=== PATIENT | male | born 1985 ===

== ENCOUNTER 2021-04-28 12:00 | Outpatient (REF) | payer BC, SELFPAY ==
[2021-04-28 15:05] LABS: Binax Internal Control QC Valid; Binax Lot number: 9864; Binax Now Covid-19 Ag Positive (Negative)
== END 2021-04-28 12:01 | disposition home or self-care (01) ==
LOC: HO.LAB 12:00
PROVIDERS: Visit Provider Internal Medicine
DX: Z20.822 Contact with and (suspected) exposure to COVID-19 (principal)
CPT/HCPCS: 36415

== ENCOUNTER 2023-08-17 09:21 | Emergency (ER) | payer BC, SELFPAY ==
[2023-08-17 09:25] VITALS: BP 136/94; PULSE 92; RESP 18; TEMP 36.4; O2SAT 95; BMI 30.6
[2023-08-17 09:42] LABS: MANUAL DIFF FLAG NO
[2023-08-17 09:44] LABS: Basophils Percent Auto 0.6 % (0-2); Eosinophils Absolute Auto 0.1 X10*3/uL (0.0-0.4); Eosinophils Percent Auto 1.5 % (0-4); Hematocrit 40.2 % (42.0-52.0); Hemoglobin 14.2 g/dl (14.0-18.0); Imm Gran Abs Auto 0.01 X10*3/uL (0.00-0.03); Imm Gran Pct Auto 0.1 % (0.0-0.4); Lymphocytes Absolute Auto 2.4 X10*3/uL (1.2-4.9); Lymphocytes Percent Auto 35.4 % (20-40); Mean Corpuscular HGB Conc 35.3 g/dl (31.0-36.0); Mean Corpuscular Volume 87.8 fL (80.0-98.0); Mean Platelet Volume 9.8 fL (9.4-12.4); Monocytes Absolute Auto 0.6 X10*3/uL (0.1-1.2); Monocytes Percent Auto 8.2 % (2-11); Neutrophils Absolute Auto 3.7 x10*3/uL (2.0-8.3); Neutrophils Percent Auto 54.2 % (45-73); Platelet Count 306 X10*3/uL (160-400); Red Blood Count 4.58 X10*6/uL (4.60-5.80); Red Cell Distribution Width 12.1 % (11.0-16.0); White Blood Count 6.7 X10*3/uL (4.8-10.8)
[2023-08-17 10:11] LABS: Alanine Aminotransferase 66 U/L (0-40); Albumin Level 4.5 g/dL (3.5-5.0); Alkaline Phosphatase 48 U/L (39-117); Anion Gap 12 (12-20); Aspartate Amino Transferase 42 U/L (5-37); Bilirubin Direct 0.2 mg/dL (0.0-0.5); Bilirubin Total 0.7 mg/dL (0.0-1.0); Blood Urea Nitrogen 13 mg/dL (9-16); Calcium 9.1 mg/dL (8.4-10.2); Carbon Dioxide 23 mmol/L (22-29); Chloride 108 mmol/L (96-108); Creatinine Clr Calc Pharmacy 142.7; Estimated Glomerular Filt Rate > 60; Glucose Random 118 mg/dL (60-115); Lipase 43 U/L (8-78); Potassium 3.8 mmol/L (3.3-5.1); Sodium 139 mmol/L (135-145); Total Protein 7.2 g/dL (6.5-8.0)
[2023-08-17 13:18] VITALS: BP 130/75; PULSE 82; RESP 20; TEMP 36.1; O2SAT 97
--- NOTE | 2023-08-17 13:19 | ED_ITS ---
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 Last month he developed bleeding with bowel movements. He saw his regular doctor found no hemorrhoids. He was referred to Gastroenterology and was given an appointment in September. He says that last month he had bleeding for about 5 or 6 days. This was associated with some abdominal discomfort. Eventually the bleeding and the abdominal discomfort resolved. Last week he once again had bright red blood with bowel movements and this has persisted over the last 6-7 days. He says he has had some mild abdominal discomfort during this period. No fevers. He says several days ago he contacted his gastroenterology office and had his appointment moved up to early August. However he says that he has sometimes felt lightheaded when he has had a bloody bowel movement and he came to the emergency room today for evaluation. Related Data Allergies Allergy/AdvReac Type Severity Reaction Status Date / Time amoxicillin Allergy Unknown Verified 08/17/23 09:27 Review of Systems 2 Review of Systems: Yes all other systems are reviewed and are negative [facility] [place] Social History Social History Advance Directives: No Advance Directives Information Provided: No Do you have a plan to hurt others: No Plan Physical Exam ED Vital Signs: Vital Signs - 24 hr 08/17/23 09:25 08/17/23 13:18 08/17/23 20:53 Temperature 97.6 F 97.0 F 97.9 F Pulse Rate 92 82 87 Respiratory Rate 18 20 19 Blood Pressure 136/94 H 130/75 144/87 H Pulse Oximetry 95 97 98 Oxygen Delivery Method Room Air Room Air Room Air BMI result Body Mass Index 30.6 Const General: cooperative, healthy appearing, comfortable and no acute distress HENMT Other: The face is symmetrical. ?Mucous membranes moist. Eyes Other: Pupils are round equal, conjunctivae are clear, extraocular movements intact Resp Effort & Inspection: normal respiratory effort Auscultation: clear to auscultation bilaterally Cardio Rate: regular rate Rhythm: regular rhythm Heart sounds: S1 normal heart sound present and S2 normal heart sound present GI Other: Abdomen is soft without apparent tenderness. Rectal exam showed excellent rectal tone. No external hemorrhoids. No masses or anything palpable on the exam. No blood on my glove. Skin Other: Skin is dry and unremarkable. Neuro Other: The patient is awake, alert, pleasant, cooperative. In no acute distress. Extrem Other: No peripheral edema Course Course Course Narrative: This is an RME: Additional HPI, ROS, PE not included below will be deferred to primary provider. 38 yo m presents with bleeding with bowel movements X 6 days. Reports abd and back pain. Denies cp, sob, fevers, chills. Not on blood thinners. 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 He is on omeprazole that he purchased [id number]. He describes a week's worth of rectal bleeding last month in June. He has now had another week's worth of rectal bleeding this month. The patient had a very long wait in our waiting room today. He had 2 CBC is drawn today. First was at 09:35 and the 2nd was at 14:24. His initial hematocrit was 40.2. His 2nd hematocrit was 40.1. He was not actively bleeding in the emergency room. He is stable. I assume that he is having bleeding from internal hemorrhoids. I have given him the name and number of the general surgeon on-call today as an alternative to his gastroenterology office to try to get prompt follow up for this recurrent rectal bleeding. Lab Data 08/17/23 14:24 08/17/23 09:35 Labs: Lab Results 08/17/23 08/17/23 Range/Units 09:35 14:24 WBC 6.7 7.0 (4.8-10.8) X10*3/uL RBC 4.58 L 4.54 L (4.60-5.80) X10*6/uL Hgb 14.2 13.9 L (14.0-18.0) g/dl Hct 40.2 L 40.1 L (42.0-52.0) % MCV 87.8 88.3 (80.0-98.0) fL MCH 31.0 30.6 (27.0-33.0) pg MCHC 35.3 34.7 (31.0-36.0) g/dl RDW 12.1 12.1 (11.0-16.0) % Plt Count 306 300 (160-400) X10*3/uL MPV 9.8 9.9 (9.4-12.4) fL Immature Gran % (Auto) 0.1 0.4 (0.0-0.4) % Neut % (Auto) 54.2 49.6 (45-73) % Lymph % (Auto) 35.4 35.9 (20-40) % Stokes % (Auto) 8.2 11.4 H (2-11) % Eos % (Auto) 1.5 2.0 (0-4) % Baso % (Auto) 0.6 0.7 (0-2) % Lymph # (Auto) 2.4 2.5 (1.2-4.9) X10*3/uL Stokes # (Auto) 0.6 0.8 (0.1-1.2) X10*3/uL Eos # (Auto) 0.1 0.1 (0.0-0.4) X10*3/uL Baso # (Auto) 0.0 0.1 (0.0-0.2) X10*3/uL Abs Immat Gran (auto) 0.01 0.03 (0.00-0.03) X10*3/uL Absolute Neuts (auto) 3.7 3.5 (2.0-8.3) x10*3/uL Absolute Nucleated RBC 0.000 0.000 (0.0-0.012) X10*3/uL Nucleated RBC % (auto) 0.0 0.0 (0.0-0.2) /100WBC PT 11.6 (11.1-13.3) SEC INR 1.0 (0.9-1.1) Sodium 139 (135-145) mmol/L Potassium 3.8 (3.3-5.1) mmol/L Chloride 108 (96-108) mmol/L Carbon Dioxide 23 (22-29) mmol/L Anion Gap 12 (12-20) BUN 13 (9-16) mg/dL Creatinine 0.86 (0.5-1.4) mg/dL Estim Creat Clear Calc 142.7 Estimated GFR > 60 Random Glucose 118 H (60-115) mg/dL Calcium 9.1 (8.4-10.2) mg/dL Total Bilirubin 0.7 (0.0-1.0) mg/dL Direct Bilirubin 0.2 (0.0-0.5) mg/dL AST 42 H (5-37) U/L ALT 66 H (0-40) U/L Alkaline Phosphatase 48 (39-117) U/L Total Protein 7.2 (6.5-8.0) g/dL Albumin 4.5 (3.5-5.0) g/dL Lipase 43 (8-78) U/L Discharge Plan Discharge Clinical Impression: Rectal bleeding Patient Disposition: Home, Self-Care Additional Instructions: Your blood counts today are stable. I suspect that your bleeding is most likely coming from internal hemorrhoids. Bleeding of this kind can be alarming to see but is rarely dangerous. I have given you the name of Dr. Luna, 1 of the general surgeons. Please contact his office in the morning to try to make a follow up appointment to pursue this problem further. Also contact the gastroenterology office to which you were referred to see if you can get an earlier appointment. I would see whichever doctor can see you sooner. Also stay in touch with your primary care doctor. Return to the emergency room if significantly worse. Referrals: Stevo Valdovinos MD [Primary Care Provider] - () Cortes Luna MD [Physician] - (rectal bleeding presumably internal hemorrhoids) Print Language: Syriac
[2023-08-17 14:28] LABS: MANUAL DIFF FLAG NO
[2023-08-17 14:29] LABS: Basophils Absolute Auto 0.1 X10*3/uL (0.0-0.2); Basophils Percent Auto 0.7 % (0-2); Eosinophils Absolute Auto 0.1 X10*3/uL (0.0-0.4); Hematocrit 40.1 % (42.0-52.0); Hemoglobin 13.9 g/dl (14.0-18.0); Imm Gran Abs Auto 0.03 X10*3/uL (0.00-0.03); Imm Gran Pct Auto 0.4 % (0.0-0.4); Lymphocytes Absolute Auto 2.5 X10*3/uL (1.2-4.9); Lymphocytes Percent Auto 35.9 % (20-40); Mean Corpuscular HGB Conc 34.7 g/dl (31.0-36.0); Mean Corpuscular Hemoglobin 30.6 pg (27.0-33.0); Mean Corpuscular Volume 88.3 fL (80.0-98.0); Mean Platelet Volume 9.9 fL (9.4-12.4); Monocytes Absolute Auto 0.8 X10*3/uL (0.1-1.2); Monocytes Percent Auto 11.4 % (2-11); Neutrophils Absolute Auto 3.5 x10*3/uL (2.0-8.3); Neutrophils Percent Auto 49.6 % (45-73); Platelet Count 300 X10*3/uL (160-400); Red Blood Count 4.54 X10*6/uL (4.60-5.80); Red Cell Distribution Width 12.1 % (11.0-16.0)
[2023-08-17 14:34] LABS: Prothrombin Time 11.6 SEC (11.1-13.3)
[2023-08-17 20:53] VITALS: BP 144/87; PULSE 87; RESP 19; TEMP 36.6; O2SAT 98
[2023-08-17 21:16] VITALS: BP 144/87; PULSE 87; RESP 19; TEMP 36.6; O2SAT 98
== END 2023-08-17 21:21 | disposition home or self-care (01) ==
PROVIDERS: Physician Assistant; Emergency Provider Emergency Medicine; PCP Internal Medicine
DX: K62.5 Hemorrhage of anus and rectum (principal)
CPT/HCPCS: 36415; 80048; 80076; 83690; 85025; 85610; 99282; 99283

== ENCOUNTER 2024-09-20 21:12 | Emergency (ER) | payer BC, SELFPAY ==
[2024-09-20] VITALS (7 sets, daily range): BP systolic 108–139; BP diastolic 56–84; PULSE 96–158; RESP 12–22; TEMP 36.6; O2SAT 95–97; BMI 24.4
--- NOTE | ~2024-09-20 | XR_ITS ---
CLINICAL HISTORY: pain, r o index fx 3 view left hand Comparison: None Findings: No fractures or dislocations. No significant arthritic change. No erosions. There is a small metallic foreign body in the dorsal aspect of the middle finger. IMPRESSION: 1. Metallic foreign body in middle finger, acuity indeterminate. Correlate clinically This document has been electronically signed by: Ángel Gonzalez MD on 09/21/2024 06:43:54
[2024-09-20] MEDS: diazePAM 10 MG/2 ML CARTRIDGE 2.5 MG IM (21:26)
[2024-09-20] MEDS: diphenhydrAMINE HCL 50 MG/ML VIAL IM (21:26)
[2024-09-20] MEDS: Haloperidol Lactate 5 MG/ML VIAL IM (21:26)
--- NOTE | 2024-09-20 21:36 | ED.PSYCH ---
HPI - Psych General Chief Complaint: Psychiatric Symptoms Stated Complaint: psych, intoxication Time Seen by Provider: 09/20/24 21:20 Source: other (Patient's friend) Mode of arrival: wheelchair Limitations: other ( intoxicated) History of Present Illness ED Provider: Dr. Martha Aranda HPI Narrative: Patient comes to the emergency room via private vehicle, accompanied by his friend. Patient is too intoxicated to give any history. According to the patient's friend, patient had a recent break-up with his girlfriend who he dated for 8 years. Two weeks ago, patient tried jumping from a 2nd floor building, patient landed on something did not cause any injury to the patient. Patient's friends have been getting multiple text messages, all concerned about suicide ideation and possible attempts. On arrival to the ED, patient tried to eloped. Patient is too intoxicated, patient was brought back to emergency room by security. Patient keeps trying to run away. Very difficult to redirect the patient, patient is under the influence of alcohol, patient needed to be chemically restrained. according to patient's friend, patient is known to take Klonopin, ketamine and large amount of alcohol. I do not see any prescriptions of Klonopin or ketamine in patient's list of medications or in the [facility] Related Data Home Medications ?Medication ?Instructions ?Recorded ?Confirmed cyclobenzaprine 5 mg tablet 5 mg PO TID 09/21/24 09/21/24 doxepin 10 mg capsule 10 mg PO BEDTIME 09/21/24 09/21/24 ibuprofen 600 mg tablet 600 mg PO TID 09/21/24 09/21/24 omeprazole 20 mg capsule,delayed 20 mg PO DAILY 09/21/24 09/21/24 release quetiapine 50 mg tablet 50 mg PO BEDTIME 09/21/24 09/21/24 quetiapine 50 mg tablet 50 mg PO DAILY 09/21/24 09/21/24 Allergies Allergy/AdvReac Type Severity Reaction Status Date / Time amoxicillin Allergy Unknown Verified 09/20/24 21:23 Review of Systems Review of Systems: Yes Other ( heavily intoxicated) [facility] Past Medical History Medical History Suicide attempt Alcohol abuse Physical Exam Vital Signs: Vital Signs: Last Vital Signs Temp 98.8 F 09/21/24 11:50 Pulse 87 09/21/24 11:50 Resp 17 09/21/24 11:50 BP 132/70 09/21/24 11:50 Pulse Ox 97 09/21/24 11:50 O2 Del Method Room Air 09/21/24 11:50 BMI result Body Mass Index 24.4 Const: Other: Appearance: Alert. combative, intoxicated Eyes: Pupils equal, round and reactive to light. ENT: Pharynx normal. Neck: Normal inspection. Neck supple. No lymph nodes noted. No crepitus CVS: Normal heart rate and rhythm. Pulses normal. Normal S1 and S2 Respiratory: No respiratory distress. Breath sounds normal. No Wheezing. No rales Abdomen: Soft and nontender. No rigidity. No distention. Skin: Skin warm and dry. Normal skin color. Normal skin turgor. Extremities: No lower extremity edema. No Lacerations. No Rash Neuro: moving all extremities, cranial nerves 2-12 grossly intact Psych: agitated, intoxicated, combative but not aggressive Course Course Course Narrative: or patient's own safety, patient needed to be chemically restrained. Patient was given on arrival 2.5 mg of IM diazepam, 50 mg IM Benadryl and 5 mg IM of Haldol all of patient's labs pending care team consult pending patient is on a Section 12 Medications Administered Discontinued Medications Generic Name Dose Route Start Last Admin Trade Name Freq PRN Reason Stop Dose Admin Diazepam 2.5 mg 09/20/24 21:23 09/20/24 21:26 Diazepam 10 Mg/2 Ml Cartridge IM 09/20/24 21:24 2.5 mg STAT STA Administration Diphenhydramine HCl 50 mg 09/20/24 21:23 09/20/24 21:26 Diphenhydramine Hcl 50 Mg/Ml Vial IM 09/20/24 21:24 50 mg ONCE ONE Administration Haloperidol Lactate 5 mg 09/20/24 21:23 09/20/24 21:26 Haloperidol Lactate 5 Mg/Ml Vial IM 09/20/24 21:24 5 mg STAT STA Administration Ibuprofen 600 mg 09/21/24 07:59 09/21/24 08:05 Ibuprofen 600 Mg Tablet PO 09/21/24 08:00 600 mg ONCE ONE Administration Medical Decision Making Medical Decision Making [facility] Narrative: My interpretation of labs: Patient's hemoglobin is 9.5 patient is a bit lower than last years. It was also noted that patient's MCV 70.2, patient likely has iron deficiency anemia. Patient denies any rectal bleeding. Patient's sodium is a bit elevated 148, patient asymptomatic. Patient admits that he has been drinking heavily.. Patient give us a urine sample, have both they urinalysis still pending, nitrite positive. However, patient denies any UTI symptoms. Urine toxicology negative for drugs of abuse, ethanol Earlier this morning, patient was complaining of finger in his left index. X-ray was read as negative. However, there is a clear fracture in the proximal phalanx of the index finger. I discussed the patient with TESSA Galan from Orthopedics, patient will need a radial gutter splint Sign out given to my colleage Dr. Sosa A radial gutter splint was applied. Patient to be discharged home. Psychiatry evaluated patient felt patient is comfortable to go home. Patient is not suicidal not homicidal wants to go home in stable condition This case was discussed with multiple providers, including Dr. Sosa, as well as Ginny Mandujano NP from psychiatry and Diane Orellana from the CARE team. Patient was brought in by a friend yesterday, and he was intoxicated and unable to provide much meaningful information. Per the psychiatry team and care team, patient was calm and cooperative, and adamantly denies any suicidal or homicidal ideation, plan or intent. Per the Psychiatry team, suicidal statements to friend in the past happen in a manner of expressing severe emotional pain, with no indication of actual wishes to be . Patient is alert and oriented, walking around the emergency room, in no acute distress. There was concerned that patient had a series of suicidal statements as well as jumping out of 2nd floor, which intent is unclear as patient again adamantly denies that it was an intent to end his life, and does not at this moment present with any signs of imminent risk of harm to self or others, at this time, patient would benefit from outpatient treatment rather than a short-term involuntary admission to an inpatient unit. Dr. Sosa was made aware of the details as well as Diane willoughby, and Justina. At this time, patient will be discharged, with strict return precautions. Differential Diagnosis Differential Diagnoses: The differential diagnosis associated with the presentation includes ( alcohol abuse, polysubstance abuse, suicidal attempt, anxiety, depression) Admission/Observation Consideration of admission/observation: Escalation of care including admission/observation considered ( patient is on a Section 12, waiting to be seen by the care team to determine patient's disposition) Lab Data 09/20/24 21:48 09/20/24 21:48 Labs: Lab Results 09/20/24 09/21/24 Range/Units 21:48 00:21 WBC 6.6 (4.8-10.8) X10*3/uL RBC 4.59 L (4.60-5.80) X10*6/uL Hgb 9.5 L D (14.0-18.0) g/dl Hct 32.2 L (42.0-52.0) % MCV 70.2 L (80.0-98.0) fL MCH 20.7 L (27.0-33.0) pg MCHC 29.5 L (31.0-36.0) g/dl RDW 17.3 H (11.0-16.0) % Plt Count 406 H D (160-400) X10*3/uL MPV 9.1 L (9.4-12.4) fL Immature Gran % (Auto) 0.2 (0.0-0.4) % Neut % (Auto) 56.0 (45-73) % Lymph % (Auto) 36.5 (20-40) % Hardy % (Auto) 5.2 (2-11) % Eos % (Auto) 1.8 (0-4) % Baso % (Auto) 0.3 (0-2) % Lymph # (Auto) 2.4 (1.2-4.9) X10*3/uL Hardy # (Auto) 0.3 (0.1-1.2) X10*3/uL Eos # (Auto) 0.1 (0.0-0.4) X10*3/uL Baso # (Auto) 0.0 (0.0-0.2) X10*3/uL Abs Immat Gran (auto) 0.01 (0.00-0.03) X10*3/uL Absolute Neuts (auto) 3.7 (2.0-8.3) x10*3/uL Absolute Nucleated RBC 0.000 (0.0-0.012) X10*3/uL Nucleated RBC % (auto) 0.0 (0.0-0.2) /100WBC Sodium 148 H (135-145) mmol/L Potassium 3.3 (3.3-5.1) mmol/L Chloride 115 H (96-108) mmol/L Carbon Dioxide 17 L (22-29) mmol/L Anion Gap 19 (12-20) BUN 9 (9-16) mg/dL Creatinine 0.86 (0.5-1.4) mg/dL Estim Creat Clear Calc 121.4 Estimated GFR > 60 Random Glucose 96 (60-115) mg/dL Calcium 8.6 (8.4-10.2) mg/dL Magnesium 2.2 (1.6-2.6) mg/dL Total Bilirubin 0.2 (0.0-1.0) mg/dL Direct Bilirubin < 0.2 (0.0-0.5) mg/dL AST 30 (5-37) U/L ALT 37 (0-40) U/L Alkaline Phosphatase 67 (39-117) U/L Total Protein 7.4 (6.5-8.0) g/dL Albumin 4.7 (3.5-5.0) g/dL Urine Color Dark Yellow Urine Appearance Clear Urine pH 6.0 (5.0-9.0) Ur Specific Fonda <= 1.005 (1.005-1.025) Urine Protein Negative (Neg-Trace) mg/dL Urine Glucose (UA) Negative (Negative) mg/dL Urine Ketones Negative (Negative) mg/dL Urine Blood Negative (Negative) Urine Nitrite Positive H (Negative) Ur Leukocyte Esterase Negative (Negative) Urine RBC 0-2 (0-2) /HPF Urine WBC 0-5 (0-5) /HPF Ur Squamous Epith Cells 0-2 (0-2) /HPF Urine Bacteria None Seen (None Seen) Hyaline Casts 0-2 (0-2) /LPF Urine Opiates Screen Not Detected (Not Detect) Ur Buprenorphine Scrn Not Detected (Not Detect) ng/mL Ur Oxycodone Screen Not Detected (Not Detect) ng/mL Urine Methadone Screen Not Detected (Not Detect) ng/mL Urine Fentanyl Screen Not Detected (Not Detect) Ur Barbiturates Screen Not Detected (Not Detect) Ur Phencyclidine Scrn Not Detected (Not Detect) Ur Amphetamines Screen Not Detected (Not Detect) U Benzodiazepines Scrn Not Detected (Not Detect) Urine Cocaine Screen Not Detected (Not Detect) U Marijuana (THC) Screen Not Detected (Not Detect) Ethyl Alcohol 193 mg/dL Procedures Orthopedic Splinting/Casting Left radial gutter: Side: left Upper Extremity Injury Location: finger (Radial gutter) Upper Extremity Immobilizer: finger (other) (Radial gutter splint) Discharge Plan Discharge Clinical Impression: Suicidal ideation, Alcohol intoxication Patient Disposition: Home, Self-Care Instructions: Finger Fracture (ED), Abuse of Alcohol (ED), Splint Care (ED) Additional Instructions: Please follow-up as per crisis as well Prescriptions: No Action doxepin 10 mg capsule 10 mg PO BEDTIME omeprazole 20 mg capsule,delayed release(DR/EC) 20 mg PO DAILY ibuprofen 600 mg tablet 600 mg PO TID cyclobenzaprine 5 mg tablet 5 mg PO TID quetiapine 50 mg tablet 50 mg PO BEDTIME quetiapine 50 mg tablet 50 mg PO DAILY Referrals: Stanley Archibald MD [Physician] - 09/25/24 Interventions: [facility]-Suicide Risk Severity Scale Last Done: 09/20/24 21:56 ED Discharge Assessment Last Done: 09/21/24 11:50 Discharge Date/Time: 09/21/24 11:59 Print Language: Faroese
[2024-09-20 21:52] LABS: MANUAL DIFF FLAG NO
[2024-09-20 21:53] LABS: Basophils Percent Auto 0.3 % (0-2); Eosinophils Absolute Auto 0.1 X10*3/uL (0.0-0.4); Eosinophils Percent Auto 1.8 % (0-4); Hematocrit 32.2 % (42.0-52.0); Hemoglobin 9.5 g/dl (14.0-18.0); Imm Gran Abs Auto 0.01 X10*3/uL (0.00-0.03); Imm Gran Pct Auto 0.2 % (0.0-0.4); Lymphocytes Absolute Auto 2.4 X10*3/uL (1.2-4.9); Lymphocytes Percent Auto 36.5 % (20-40); Mean Corpuscular HGB Conc 29.5 g/dl (31.0-36.0); Mean Corpuscular Hemoglobin 20.7 pg (27.0-33.0); Mean Corpuscular Volume 70.2 fL (80.0-98.0); Mean Platelet Volume 9.1 fL (9.4-12.4); Monocytes Absolute Auto 0.3 X10*3/uL (0.1-1.2); Monocytes Percent Auto 5.2 % (2-11); Neutrophils Absolute Auto 3.7 x10*3/uL (2.0-8.3); Platelet Count 406 X10*3/uL (160-400); Red Blood Count 4.59 X10*6/uL (4.60-5.80); Red Cell Distribution Width 17.3 % (11.0-16.0); White Blood Count 6.6 X10*3/uL (4.8-10.8)
--- NOTE | 2024-09-20 21:53 | PC.NURSE ---
Per friend, pt had a recent break up with girlfriend, friend went to house to check on him - found him to be altered & under the influence of something - smelling like alcohol. Pt made SI statements to the friend. Friend spoke with provider on arrival to ED, pt then tried to elope from WR immediately upon checking in. Per friend, pt is under the influence of ketamine, klonopin, and alcohol. also reports the patient attempted to jump from second story window 2 weeks ago. Brought back to ED room 11 by security. Placed into 4 point restraints as patient was resistive, aggressive, refusing all interventions and refusing to stay, attempting to elope. Medicated per mar with IM injections. 1:1 sitter at bedside. pt on clinical research monitor, blood work collected and sent to lab. Sleeping, respirations even and unlabored. plan of care ongoing.
[2024-09-20 22:10] LABS: Alanine Aminotransferase 37 U/L (0-40); Albumin Level 4.7 g/dL (3.5-5.0); Alkaline Phosphatase 67 U/L (39-117); Anion Gap 19 (12-20); Aspartate Amino Transferase 30 U/L (5-37); Bilirubin Direct < 0.2 mg/dL (0.0-0.5); Bilirubin Total 0.2 mg/dL (0.0-1.0); Blood Urea Nitrogen 9 mg/dL (9-16); Calcium 8.6 mg/dL (8.4-10.2); Carbon Dioxide 17 mmol/L (22-29); Chloride 115 mmol/L (96-108); Creatinine Clr Calc Pharmacy 121.4; Estimated Glomerular Filt Rate > 60; Ethanol 193 mg/dL; Glucose Random 96 mg/dL (60-115); Magnesium 2.2 mg/dL (1.6-2.6); Potassium 3.3 mmol/L (3.3-5.1); Sodium 148 mmol/L (135-145); Total Protein 7.4 g/dL (6.5-8.0)
--- NOTE | 2024-09-20 22:55 | PC.NURSE ---
handover given to Ana AKERS. pt only remains in right arm at this time. ernestina, sleeping on stretcher. see restraint paperwork for further info
--- NOTE | 2024-09-20 23:07 | PC.NURSE ---
This RN assumed pt care @ 2300. Pt sleeping, respirations even and unlabored, no signs of distress Pt removed from restraints completely @ 2304. Sitter with pt Vitals stable Plan of care ongoing.
[2024-09-21 00:36] LABS: Amphetamine Screen Urine Not Detected (Not Detect); Barbiturates, Urine Not Detected (Not Detect); Benzodiazepines Screen Urine Not Detected (Not Detect); Buprenorphine Scr Not Detected (Not Detect); Cannabinoid Screen Urine Not Detected (Not Detect); Cocaine Screen Urine Not Detected (Not Detect); Fentanyl, urine Not Detected (Not Detect); Methadone Screen, Urine Not Detected (Not Detect); Opiate Screen Urine Not Detected (Not Detect); Oxycodone Screen Urine Not Detected (Not Detect); Phencyclidine Screen Urine Not Detected (Not Detect)
--- NOTE | 2024-09-21 00:55 | PC.NURSE ---
Pt changed over with security Sitter with pt Plan of care ongoing.
--- NOTE | 2024-09-21 01:13 | PC.NURSE ---
This RN counted $670.00 in farr from the pts samira, amount counted, verified, and cosigned by security Wilner Tejeda placed in envelope by RN and sealed & placed in lockup by security Plan of care ongoing.
--- NOTE | 2024-09-21 02:23 | PC.NURSE ---
This RN gave report to RN Pt ambulates with a steady gait. Plan of care ongoing.
[2024-09-21 02:24] VITALS: BP 109/66; PULSE 95; RESP 14; TEMP 36.6; O2SAT 97
--- NOTE | 2024-09-21 02:43 | PC.NURSE ---
patient spoke to t/w and stated hes pverall current with some medications, doxepin, seroquel, etc. states he gets meds from [facility]
--- NOTE | 2024-09-21 05:58 | PC.NURSE ---
patient expressed concern for L index finger injry fracture, notifiedprovider
[2024-09-21 06:11] VITALS: BP 132/70; PULSE 87; RESP 17; TEMP 37.1; O2SAT 97
--- NOTE | 2024-09-21 07:14 | PC.NURSE ---
Assumed care of pateint approx 0700. Pt resting comfortably in bed with no apparent s/s of distress. awaiting to be seen by provider.
--- NOTE | 2024-09-21 07:51 | PC.NURSE ---
pt moved to [facility], report given to RN Esther, plan for Dr. Aranda to apply splint
[2024-09-21 07:56] LABS: Appearance Urine Clear; Color Urine Dark Yellow; Glucose Urine UA Negative (Negative); Leukocyte Esterase Urine Negative (Negative); Nitrite Urine Positive (Negative); Specific Gravity - Urine <= 1.005 (1.005-1.025); UMIC TRIGGER UA YES; Urine Blood Negative (Negative); Urine Ketones Negative (Negative); Urine Protein Negative (Neg-Trace)
[2024-09-21 08:03] LABS: Bacteria Urine None Seen (None Seen); Hyaline Casts Urine 0-2 /LPF (0-2); RBC Urine 0-2 /HPF (0-2); Squamous Epithelial Cell Urine 0-2 /HPF (0-2); WBC Urine 0-5 /HPF (0-5)
[2024-09-21] MEDS: Ibuprofen 600 MG TABLET PO (08:05)
--- NOTE | 2024-09-21 10:49 | PC.NURSE ---
care team at bedside meeting with patient. visitors also at bedside
--- NOTE | 2024-09-21 10:49 | MHC.CARE ---
Pt does not present as an imminent risk and does not meet the criteria for IPLOC. ED provider and psychiatry in agreement with disposition and D/C.
[2024-09-21 11:50] VITALS: BP 132/70; PULSE 87; RESP 17; TEMP 37.1; O2SAT 97
== END 2024-09-21 11:59 | disposition home or self-care (01) ==
PROVIDERS: Emergency Provider Emergency Medicine; PCP Internal Medicine
DX: S69.92XA Unspecified injury of left wrist, hand and finger(s), initial encounter (principal); F10.129 Alcohol abuse with intoxication, unspecified; Y90.6 Blood alcohol level of 120-199 mg/100 ml; R45.851 Suicidal ideations; M79.642 Pain in left hand; M79.645 Pain in left finger(s); Y93.39 Activity, other involving climbing, rappelling and jumping off; Y92.9 Unspecified place or not applicable; Y99.8 Other external cause status; Z51.81 Encounter for therapeutic drug level monitoring; Z79.899 Other long term (current) drug therapy
CPT/HCPCS: 29130; 36415; 73120; 80048; 80076; 80307; 81001; 83735; 85025; 96372; 99285; J1200; J1630; J3360; S9485

== ENCOUNTER → 2024-09-21 06:03 | Outpatient (BNV) | payer BC, SELFPAY | PROVIDERS: Emergency Provider Emergency Medicine; PCP Internal Medicine; Visit Provider Specialist | DX: S60.453A Superficial foreign body of left middle finger, initial encounter (principal) | CPT/HCPCS: 73120 ==

== ENCOUNTER 2024-09-26 10:42 | Outpatient (AMB) | payer BC, SELFPAY ==
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
[2024-09-26 11:23] VITALS: BMI 27.2
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
== END 2024-09-26 12:20 | disposition home or self-care (01) ==
LOC: HO.HOS 10:42
PROVIDERS: PCP Internal Medicine; Visit Provider Orthopaedic Surgery
DX: S62.631A Displaced fracture of distal phalanx of left index finger, initial encounter for closed fracture (principal)
CPT/HCPCS: 26720; 99204

== ENCOUNTER → 2024-09-26 10:42 | Outpatient (BNVA) | payer BC, SELFPAY | PROVIDERS: PCP Internal Medicine; Visit Provider Orthopaedic Surgery | DX: M79.642 Pain in left hand (principal); S62.601A Fracture of unspecified phalanx of left index finger, initial encounter for closed fracture; X50.1XXA Overexertion from prolonged static or awkward postures, initial encounter; Y93.89 Activity, other specified; Y92.530 Ambulatory surgery center as the place of occurrence of the external cause; Y99.9 Unspecified external cause status; F10.229 Alcohol dependence with intoxication, unspecified; Z91.51 Personal history of suicidal behavior | CPT/HCPCS: 26720 ==

== ENCOUNTER → 2024-09-26 11:08 | Outpatient (BNV) | payer BC, SELFPAY | PROVIDERS: Visit Provider Radiology Diagnostic Radiology | DX: S62.617D Displaced fracture of proximal phalanx of left little finger, subsequent encounter for fracture with routine healing (principal) | CPT/HCPCS: 73130 ==

== ENCOUNTER 2024-09-27 11:08 | Outpatient (REF) | payer BC, SELFPAY ==
--- NOTE | ~2024-09-27 | XR_ITS ---
EXAMINATION: XR HAND, LEFT CLINICAL INFORMATION: M79.642 - Pain in left hand, follow-up fracture COMPARISON: September 21, 2024 TECHNIQUE: PA, lateral, and oblique views of the left hand. FINDINGS: Again seen is an oblique fracture in the mid and distal diaphysis and metadiaphysis of the proximal phalanx of the second digit. No other abnormalities. XR/XR hand LT min 3V IMPRESSION: Stable fracture involving the second proximal phalanx of the left hand. It appears to extend to the volar margin of the articular surface. Electronically signed by: Ector Freeman MD 09/26/2024 05:59 PM EDT
--- OUTSIDE RECORDS SUMMARY | 2024-09-28 11:59 | XMS_ITS | Clinical Summary ---
Author Organization 175 [facility] Address [address] [place] [address] Phone Care Team Providers Care Urologist Md Name Role Phone Stevo Valdovinos MD Primary [...] Date Diagnosed Date Anxiety 02/10/2024 Overview (02/10/2024): Ramon castellanos therapist [phone] Opioid dependence in remission ([facility]/HCC V24, CMS /HCC V28) 02/10/2024 Fatty liver [...] 3:00 PM EDT Office Visit Adult Medicine [address] [address] Wenceslao Nielsen NP Fall, subsequent encounter (Primary Dx); Neck pain; Acute midline thoracic back pain; Acute pain of right shoulder; Acute pain of right knee 07/24/2024 8:30 AM EDT - 07/24/2024 11:59 PM EDT Hospital Encounter [facility] Ultrasound [address] [place] [address] Fatty liver Discharge Disposition: Home or Self Care from Last 3 Months Immunizations Name Administration Dates Next Due DTP 08/07/1992, 9,02/07/1988, 988,1987 [id number] (Pediarix) 6 w ks to less than [...] ,07/25 DX:Ascariasis Opioid dependence in remissi on ([facility]/HCC V24, CMS/HCC V28) DX:Opioid dependence in remission ([facility]) Anxiety DX:Anxiety Rectal bleeding DX:Rectal bleedi ng [...] Signed Date: 07/24/2024 12:05 ET Workstation ID: [id number] Transcribed By: Self Edit Transcribed Date: 07/24/2024 [...] Signed Date: 07/24/2024 12:05 ET Workstation ID: [id number] Transcribed By: Self Edit Transcribed Date: 07/24/2024 12:03 ET Morgan ZARATE IMG US PROCEDURES Final Result * HIV Screening (05/12/2022) HIV Screening Abstracted Result [facility] Historical Provider HEALTH MAINTENANCE Final Result * Hepatitis C Screening (05/12/2022) Pathologist [facility] Hepatitis C Screening Abstracted Historical Provider HEALTH MAINTENANCE Final Result * (ABNORMAL) Lipid panel (05/12/2022) LDL/HDL Ratio 6(A) 0 - 4 Triglycerides 193(A) 0 - 150 mg/dL Cholesterol 228(A) 0 - 200 mg/dL HDL 40 >=40 mg/dL LDL Cholesterol 150(A) 0 - 100 mg/dL Blood Venous blood specimen / Unknown Result [facility] Historical Provider LAB BLOOD ORDERABLES Radha l Result from Last 3 Months or Most Recently Relevant to Health Maintenance Insurance [facility] Care Teams Urologist Md Relationship Specialty Start Date End Date Stevo Valdovinos MD [address] [place] [address] PCP - General 03/26/22
== END 2024-09-27 11:09 | disposition home or self-care (01) ==
LOC: HO.HOSX 11:08
PROVIDERS: Visit Provider Orthopaedic Surgery
DX: M79.642 Pain in left hand (principal)
CPT/HCPCS: 73130

== ENCOUNTER 2024-10-16 08:39 | Outpatient (REF) | payer BC, SELFPAY ==
--- NOTE | ~2024-10-16 | XR_ITS ---
EXAMINATION: XR HAND 3 OR MORE VIEWS LEFT HISTORY: M79.641 - Pain in left hand COMPARISON: Comparison is made with the prior examination dated 09/26/2024. FINDINGS: Three views of the left hand are submitted. Osseous mineralization is normal. Again seen is a minimally displaced oblique fracture of the proximal phalanx of the index finger. The fracture line remains visible. Minimal callus formation is identified, consistent with healing. The joint spaces are preserved. The soft tissues are unremarkable. XR/XR hand LT min 3V IMPRESSION: Healing minimally displaced oblique fracture of the proximal phalanx of the index finger. Electronically signed by: Robert Painting MD 10/16/2024 09:35 AM EDT
--- OUTSIDE RECORDS SUMMARY | 2024-10-17 09:04 | XMS_ITS | Clinical Summary ---
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 Tx Started 06/15/15 Harvoni 90-400 mg. Take One Tab Daily for 12 Weeks. End Date 09/07/15. Alcohol abuse 07/13/2007 Attention deficit hyperactivity disorder (ADHD) 07/17/2003 Encounters Date Type Department Care Team Description 10/04/2024 Telephone Adult Medicine [address] [phone] Stevo Valdovinos MD Medication Problem 09/04/2024 3:00 PM EDT Office Visit Adult Medicine [address] [phone] Wenceslao Nielsen NP Fall, subsequent encounter (Primary Dx); Neck pain; Acute midline thoracic back pain; Acute pain of right shoulder; Acute pain of right knee 07/24/2024 8:30 AM EDT - 07/24/2024 11:59 PM EDT Hospital Encounter [facility] Ultrasound [address] [place] [address] Fatty liver Discharge Disposition: Home or Self Care from Last 3 Months Immunizations Name Administration Dates Next Due DTP 08/07/1992, 9,02/07/1988, 988,1987 [id number] (Pediarix) 6 w ks to less than [...] 11:30 AM EDT Office Visit Adult Medicine [facility] [address] [place] [phone] Hiwot Lee PA [address] [place], [place] Health Maintenance Due Date Last Done [...] Signed Date: 07/24/2024 12:05 ET Workstation ID: [id number] Transcribed By: Self Edit Transcribed Date: 07/24/2024 [...] Signed Date: 07/24/2024 12:05 ET Workstation ID: [id number] Transcribed By: Self Edit Transcribed Date: 07/24/2024 12:03 ET [facility] US PROCEDURES Final Result * HIV Screening (05/12/2022) Pathologist [facility] HIV Screening Abstracted Result [facility] Provider HEALTH MAINTENANCE Final Result * Hepatitis C Screening (05/12/2022) Pathologist [facility] Hepatitis C Screening Abstracted Result [facility] Provider HEALTH MAINTENANCE Final Result * (ABNORMAL) Lipid panel (05/12/2022) Pathologist [facility] LDL/HDL Ratio 6(A) 0 - 4 Triglycerides 193(A) 0 - 150 mg/dL Cholesterol 228(A) 0 - 200 mg/dL HDL 40 >=40 mg/dL LDL Cholesterol 150(A) 0 - 100 mg/dL Blood Venous blood specimen / Unknown Result [facility] Historical Provider LAB BLOOD ORDERABLES Radha l Result from Last 3 Months or Most Recently Relevant to Health Maintenance Insurance [facility] Care Teams 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
== END 2024-10-16 08:40 | disposition home or self-care (01) ==
LOC: HO.HOSX 08:39
DX: M79.642 Pain in left hand (principal); S62.661A Nondisplaced fracture of distal phalanx of left index finger, initial encounter for closed fracture; W17.89XA Other fall from one level to another, initial encounter; Y93.89 Activity, other specified; Y92.9 Unspecified place or not applicable; Y99.9 Unspecified external cause status
CPT/HCPCS: 73130

== ENCOUNTER → 2024-10-16 08:56 | Outpatient (BNV) | payer BC, SELFPAY | PROVIDERS: Visit Provider Radiology Diagnostic Radiology | DX: S62.611D Displaced fracture of proximal phalanx of left index finger, subsequent encounter for fracture with routine healing (principal) | CPT/HCPCS: 73130 ==

== ENCOUNTER 2024-10-16 08:57 | Outpatient (AMB) | payer BC, SELFPAY ==
[2024-10-16 09:07] VITALS: BMI 27.2
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
--- OUTSIDE RECORDS SUMMARY | 2024-10-16 09:28 | XMS_ITS | Clinical Summary ---
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 for 7 days 5 Active ibuprofen (ADVIL,MOTRIN) 600 mg tablet Take 1 tablet (600 mg total) by mouth 3 (three) times a day if needed for mild pain (pain). 60 tablet 5 11/04/19 25 Active Active Problems Problem Noted Date Diagnosed Date Anxiety 02/10/2024 Overview (02/10/2024): Ramon castellanos therapist [phone] Opioid dependence in remission ([facility]/HCC V24, [facility] /[facility] V28) 02/10/2024 Fatty liver 07/25/2023 Gallbladder polyp 07/25/2023 Microscopic hematuria 01/23/2014 Hep C w/o coma, chronic ([facility]/HCC V24, [facility]/HCC V2 8) 06/30/2011 Overview (02/10/2024): Chronic Hepatitis C Genotype 1A. Tx Started 06/15/15 Harvoni 90-400 mg. Take One Tab Daily for 12 Weeks. End Date 09/07/15. Alcohol abuse 07/13/2007 Attention deficit hyperactivity disorder (ADHD) 07/17/2003 Encounters Date Type Department Care Team Description 10/04/2024 Telephone Adult Medicine [address] [phone] Stevo Valdovinos MD Medication Problem 09/04/2024 3:00 PM EDT Office Visit Adult Medicine [address] [phone] Wenceslao Nielsen NP Fall, subsequent encounter (Primary Dx); Neck pain; Acute midline thoracic back pain; Acute pain of right shoulder; Acute pain of right knee 07/24/2024 8:30 AM EDT - 07/24/2024 11:59 PM EDT Hospital Encounter [facility] Ultrasound [address] [place] [address] Fatty liver Discharge Disposition: Home or Self Care from Last 3 Months Immunizations Name Administration Dates Next Due DTP 08/07/1992, 9,02/07/1988, 988,1987 [id number] (Pediarix) 6 w ks to less than [...] ,07/25 DX:Ascariasis Opioid dependence in remissi on (CMS/HCC V24, CMS/HCC V28) DX:Opioid dependence in remission (HCC) Anxiety DX:Anxiety Rectal bleeding DX:Rectal bleedi ng [...] PM EDT provider will rechk Temperature 36.2 C (97.2 F) 09/04/2024 3:15 PM EDT Respiratory Rate 16 09/04/2024 3:15 PM EDT Oxygen Saturation 98% 09/04/2024 3:1 5 PM EDT Inhaled Oxygen Concentration - - Weight 88.8 kg (195 lb 12.8 oz) 09/04/2024 3:15 PM EDT Height 180.3 cm (5' 11 ) 09/04/2024 3:1 5 PM EDT Body Mass Index 27.31 09/04/2024 3:15 PM EDT Plan of Treatment Upcoming Encounters Date Type Department Care Team (Late st Contact Info) Description 10/22/2024 11:30 AM EDT Office Visit Adult Medicine [facility] [address] [place] [phone] Hiwot Lee PA [address] [place], [place] Health Maintenance Due Date Last Done Comments Hepatitis A Vaccines (1 of 2 - Risk 2-dose series) 07/31/2006 Pneumococcal Vaccine: Pediatrics (0 to 5 Years) and At-Risk Patients (6 to 64 Years) (1 of 2 - PCV) 07/31/2006 Depression Screening 03/23/2022 Social Influencers of Health Screening 03/23/2022 COVID-19 Vaccine ( - season) 2023 03/14/2021 Influenza Vaccine (Season [...] Procedure Name Priority Date/Time Associated Diagnosis Comments EXTERNAL XRAY REPORT 09/21/2024 EXTERNAL XRAY REPORT 09/21/2024 US ABDOMEN LIMITED Routine 07/24/2024 9: 12 AM EDT Fatty liver HEPATITIS C SCREENING Routine 05/12/2022 HIV SCREENING Routine 05/12/2022 LIPID PANEL Routine 05/12/2022 from Last 3 Months or Most Recently Relevant to Health Maintenance Results * External Xray Report (09/21/2024) Only the most recent of2 resultswithin the time period is included. Anatomical Region Laterality Modality Radiographic Shanel ging us Provider [facility] XR PROCEDURES Final Result * US Abdomen Limited (07/24/2024 9:12 AM EDT) Anatomical Region Laterality Modality Body Ultrasound 07/24/2024 12:0 3 PM EDT Impressions 07/24/2024 12:05 PM EDT 1. Small gallbladder polyps and findings suggestive of adenomyomatosis. 2. Mild hepatic steatosis. -------- FINAL REPORT -------- Dictated By: Oscar Hernandez Dictated Date: 07/24/2024 12:03 ET Assigned Physician: Oscar Hernandez Reviewed and Electronically Signed By: Oscar Hernandez Signed Date: 07/24/2024 12:05 ET Workstation ID: [id number] Transcribed By: Self Edit Transcribed Date: 07/24/2024 12:03 ET Narrative 07/24/2024 12:05 PM EDT PROCEDURE: Right upper quadrant ultrasound. HISTORY: steatosis of liver. COMPARISON: None. TECHNIQUE: Grayscale, color Doppler, and spectral Doppler ultrasound evaluation of the right upper quadrant of the abdomen. FINDINGS: LIVER: Mildly echogenic parenchyma. No focal lesion. Normal flow in the main portal vein. BILIARY: Several small gallbladder polyps, measuring up to 4 mm. Small foci of artifact originating in the gallbladder wall suggestive of adenomyomatosis. Normal appearance of the biliary tree. Negative sonographic Fierro sign. PANCREAS: Visualized portions are normal. RIGHT KIDNEY: Normal size and echotexture. No hydronephrosis or focal lesion. Procedure Note Oscar [...] Signed Date: 07/24/2024 12:05 ET Workstation ID: [id number] Transcribed By: Self Edit Transcribed Date: 07/24/2024 12:03 ET [facility] US PROCEDURES Final Result * HIV Screening (05/12/2022) Pathologist [facility] HIV Screening Abstracted Result [facility] Provider HEALTH MAINTENANCE Final Result * Hepatitis C Screening (05/12/2022) Pathologist [facility] Hepatitis C Screening Abstracted Result [facility] Provider HEALTH MAINTENANCE Final Result * (ABNORMAL) Lipid panel (05/12/2022) Pathologist [facility] LDL/HDL Ratio 6(A) 0 - 4 Triglycerides 193(A) 0 - 150 mg/dL Cholesterol 228(A) 0 - 200 mg/dL HDL 40 >=40 mg/dL LDL Cholesterol 150(A) 0 - 100 mg/dL Blood Venous blood specimen / Unknown Result [facility] Historical Provider LAB BLOOD ORDERABLES Radha l Result from Last 3 Months or Most Recently Relevant to Health Maintenance Insurance [facility] Care Teams 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
== END 2024-10-16 09:47 | disposition home or self-care (01) ==
PROVIDERS: PCP Internal Medicine
DX: S62.601A Fracture of unspecified phalanx of left index finger, initial encounter for closed fracture (principal)
CPT/HCPCS: 99024

== ENCOUNTER 2024-11-14 15:13 | Outpatient (AMB) | payer BC, SELFPAY ==
[2024-11-14 15:13] VITALS: BMI 27.2
--- NOTE | 2024-11-14 15:13 | MHC.OFFVIS ---
Vital Signs 11/14/24 15:13 Height 5 ft 11 in Weight 195 lb BMI 27.2 Intake Visit Reasons: OV - Left Index Distal Phalanx Fx ~09/21/34 Intake Note: Mehrdad is a 39 year old left hand dominant male who presents today for a follow up s/p Left Index Finger Distal Phalanx Fracture ~09/21/24. At his last visit he was transitioned into a velcro wrist brace with jelly tape. Instructed to lift nothing heavier than a cell phone for 4 weeks. He remains out of work at this time. Patient reports he is doing well, however he is still having minimal left index swelling. He states he has been off the wrist brace for about 2 weeks. He has started OT once a week, with improvement of ROM. Per patient, OT recommended he be considered for an extended period of time off of work. Allergies amoxicillin Allergy (Verified 11/14/24 15:21) Unknown HPI HPI OV - Left Index Distal Phalanx Fx ~09/21/34: Details: Mehrdad is a 39 year old left hand dominant male who presents today for a follow up s/p Left Index Finger Distal Phalanx Fracture ~09/21/24. At his last visit he was transitioned into a velcro wrist brace with jelly tape. Instructed to lift nothing heavier than a cell phone for 4 weeks. He remains out of work at this time. Patient reports he is doing well, however he is still having minimal left index swelling. He states he has been off the wrist brace for about 2 weeks. He has started OT once a week, with improvement of ROM. Per patient, OT recommended he be considered for an extended period of time off of work. 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 Review of Systems Const All systems reviewed & are unremarkable except as noted in HPI and below Physical Exam Vital Signs: BMI result Body Mass Index 27.2 Const General: cooperative, healthy appearing and no acute distress Orientation/consciousness: patient oriented x3 HEENT Head: Yes normocephalic and Yes atraumatic Eyes EOM: EOMs intact bilaterally Resp Effort & Inspection: normal respiratory effort and able to speak in complete sentences Cardio Jugular venous distension: no JVD Skin General skin exam: turgor normal Rashes: no rashes Neuro General: patient oriented x3 Extrem Other: Evaluation of Left Upper Extremity: The patient is alert, oriented, and in no acute distress Neuro: Median, Ulnar, Radial nerves motor and sensory intact and sensation is normal to the tips of all digits Vascular: Cap refill brisk ROM: He can flex and extend his index finger at the MCP joint between 0 and 90 degrees. He can flex and extend the index finger at the PIP joint easily between 0 and 60 degrees. I did not push it any further Skin: No lacerations or abrasions or evidence of open fracture General: Resolved Palmar ecchymosis No Erythema or evidence of infection. No further tenderness over the index ray fracture site Minimal Swelling in the index finger over the proximal phalanx Psych Appearance: grossly normal Affect: normal affect Attitude: cooperative Assessment & Plan Assessment & Plan (1) Fracture of phalanx of left index finger: Code(s): S62.601A - Fracture of unspecified phalanx of left index finger, initial encounter for closed fracture Category: Medical Plan Assessment & Plan: 1. Left index finger distal phalanx fracture DOI: ~09/21/24, injured while being restrained in the ED 09/06/24, possibly from jump from 2nd story window Splinted in ED 09/21/24 I educated him about this condition I discussed operative and non-operative treatment options I recommend we manage this conservatively, and he is in agreement Patient is educated he should continue jelly taping the fingers with high-risk daytime activities, such as heavy lifting or while at work Patient is educated that over the next 3-4 weeks, he can begin a gradual return back to full normal activity If patient experiences any increases in pain, swelling, redness, or other concerning symptoms, he should call our office for reassessment Patient is amenable to this plan Follow-up as needed Coding Level of Care Code Global (35374) Diagnoses Fracture of phalanx of left index finger S62.601A
--- OUTSIDE RECORDS SUMMARY | 2024-11-14 15:41 | XMS_ITS | Clinical Summary ---
Author Organization 175 [facility] Address [address] [place] [address] Phone Care Team Providers Care Technical Writing Lead/Mgr Name Role Phone Stevo Valdovinos MD Primary Care Provider Allergies Active Allergy Reactions Criticality Noted Date Comments Amoxicillin Trihydrate 01/29/2005 hives Medications triamcinolone (KENALOG) 0.025 % cream Apply to affected areas twice daily for 2 weeks 08/10/19 23 Active omeprazole (PriLOSEC) [address] capsule Take 1 capsule (20 mg total) by mouth 1 (one) time each day. Take on empty stomach in am . Wait 30 mins and then eat to activate the medication 30 capsule 11 03/23/20 24 Active cyclobenzapri ne (FLEXERIL) 5 mg tablet Take 1 tablet (5 mg total) by mouth. for 7 days 09/01/19 25 Active doxepin (SINEquan) 10 mg capsule at bedtimeTake 1 Capsule by mouth at bedtime. 30 capsule 1 10/23/19 25 Active QUEtiapine (SEROquel) 50 mg tablet Take 1 tablet (50 mg total) by mouth at bedtime. 30 tablet 1 10/23/19 25 Active pramipexole (MIRAPEX) 0.25 mg tablet TAKE 1 TABLET BY MOUTH AT BEDTIME 90 tablet 10/24/19 25 Active ferrous sulfate 325 mg (65 mg iron) EC tablet Take 1 tablet (325 mg total) by mouth 1 (one) time each day with breakfast. Do not crush, chew, or split. 30 each 5 10/24/19 25 Active doxepin (SINEquan) 10 mg capsule Take 1 Capsule by mouth at bedtime. 025 Discontinued(R eorder) pramipexole (MIRAPEX) 0.25 mg tablet TAKE 1 TABLET BY MOUTH AT BEDTIME 06/20/19 24 025 Discontinued(R eorder) QUEtiapine (SEROquel) 50 mg tablet Take 0.5 tablets (25 mg total) by mouth at bedtime. 025 Discontinued(R eorder) polyethylene glycol (Golytely) 236-22.74-6.7 4 -5.86 gram solution Take 4L by mouth once for one dose. May substitue any PEG. Starting at 6PM the night before your procedure drink 1 8oz glasses at your own pace until you complete half of the gallon. Finish 2nd half of the gallon 5 hours before your procedure. 4000 mL 03/26/20 24 025 Discontinued(T herapy completed) bisacodyL (DULCOLAX) 5 mg EC tablet Take 2 tablets by mouth right before beginning bowel prep. See instructions provided by the office 2 tablet 03/26/20 24 025 Discontinued(T herapy completed) ibuprofen (ADVIL,MOTRIN ) 600 mg tablet Take 1 tablet (600 mg total) by mouth 3 (three) times a day if needed for mild pain (pain). 60 tablet 09/05/19 25 025 pramipexole (MIRAPEX) 0.25 mg tablet TAKE 1 TABLET BY MOUTH AT BEDTIME 30 tablet 1 10/23/19 25 025 Discontinued Active Problems Problem Noted Date Diagnosed Date History of iron deficiency anemia 10/22/2024 Mixed hyperlipidemia 10/22/2024 Vapes nicotine containing substance 10/22/2024 RLS (restless legs syndrome) 10/22/2024 Insomnia 10/22/2024 Anxiety 02/10/2024 Overview (02/10/2024): Ramon castellanos therapist [phone] Opioid dependence in remission (CMS/HCC V24, CMS /HCC V28) 02/10/2024 Fatty liver [...] Encounters Date Type Department Care Team Description 10/23/2024 Telephone Adult Medicine [address] [phone] Hiwot Lee PA 10/22/2024 11:30 AM EDT Office Visit Adult Medicine [address] [phone] Hiwot Lee PA Routine general medical examination at a health care facility (Primary Dx); History of iron deficiency anemia; Mixed hyperlipidemia; RLS (restless legs syndrome); Insomnia, unspecified type; Vapes nicotine containing substance 10/22/2024 Telephone Adult Medicine [address] [phone] Hiwot Lee PA 10/04/2024 Telephone Adult Medicine [address] [phone] Stevo Valdovinos MD Medication Problem 09/04/2024 3:00 PM EDT Office Visit Adult Medicine [address] [phone] Wenceslao Nielsen NP Fall, subsequent encounter (Primary Dx); Neck pain; Acute midline thoracic back pain; Acute pain of right shoulder; Acute pain of right knee from Last 3 Months Immunizations Name Administration Dates Next Due DTP 08/07/1992, 9,02/07/1988, 988,1987 [id number] (Pediarix) 6 w ks to less than [...] V24, CMS/HCC V28) DX:Opioid dependence in remission ([facility]) Anxiety DX:Anxiety Rectal bleeding DX:Rectal bleedi ng Fatty liver DX:Fatty liver Fatty liver DX:Fatty liver Hyperlipidemia DX:Hyperlipidemi a Family History Medical History Relation Name Comments Hyperlipidemia Father No Known Problems Maternal Grandfather Lung cancer Maternal Grandmother No Known Problems Mother No Known Problems Paternal Grandfather No Known Problems Paternal Grandmother No Known Problems Sister Relation Name Status Comments Father Alive Maternal Grandfather Alive Maternal Grandmother Mother Alive Paternal Grandfather Alive Paternal Grandmother Alive Sister Alive Social History Tobacco Use Types Packs/Day Years Used Date Smoking Tobacco: Former Cigarettes Smokeless Tobacco: Never Tobacco Cessation:Counseling Given: Not Answered Alcohol Use Standard Drinks/Week Comments Not Currently 0 (1 standard drink = 0.6 oz pur e alcohol) sober 1 year Housing Instability Answer Date Recorde d Are you worried that in the next 2 months you may not have stable housing? No 10/22/2024 Food Access & Nutrition Answer Date Rec orded Do you have access to a vari ety of food including fruits and vegetables? Yes 10/22/2024 Health Literacy Answer Date Recorded How often do you need to hav e someone help you when you read instructions, pamphlets, or other written material from your doctor or pharmacy? Never 10/22/2024 Caregiver: How often do you need to have someone help you when you read instructions, pamphlets, or other written material from your doctor or pharmacy? Not on file 10/22/2024 Financial Risk Answer Date Recorded How hard is it for you to pa y for the very basics like food, housing, medical care, and air conditioning / heating? Not very hard 10/22/2024 Transportation Answer Date Recorded Has the lack of transportati on kept you from meetings, work, or from getting things needed for daily living? No Has the lack of transportati on kept you from medical appointments or from getting medications? No 10/22/2024 Social Isolation Answer Date Recorded How often do you feel lonely or isolated from th ose around you? Never 10/22/2024 Food Risk Answer Date Recorded Within the past 12 months we worried whether our food would run out before we got money to buy more. Never true 10/22/2024 Within the past 12 months th e food we bought just didn't last and we didn't have money to get more. Never true 10/22/2024 Dependent Care Answer Date Recorded Do you need help finding or paying for care for your loved ones. For example, early childhood education coordinator or elderly care for an older adult? No 10/22/2024 Education Answer Date Recorded Do you think completing more education or training, like finishing a GED, going to college, or learning a trade, would be helpful for you? No 10/22/2024 Employment and Income Answer Date Recor ded During the last four weeks, have you been actively looking for work? No 10/22/2024 Living Situation Answer Date Recorded What is your living situation? 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 Not on file Not on file Obstetrics History Last Filed Vital Signs Vital Sign Reading Time Taken Comments Blood Pressure 111/68 10/22/2024 11:40 AM EDT Pulse 97 10/22/2024 11:40 AM EDT Temperature 36.6 C (97.8 F) 10/22/2024 11:40 AM EDT Respiratory Rate 14 10/22/2024 11:40 AM EDT Oxygen Saturation 98% 09/04/2024 3:15 PM EDT Inhaled Oxygen Concentration - - Weight 83.2 kg (183 lb 6.4 oz) 10/22/2024 11:40 AM EDT Height 180.3 cm (5' 11 ) 10/22/2024 11:40 AM EDT Body Mass Index 25.58 10/22/2024 11:40 AM EDT Plan of Treatment Upcoming Encounters Date Type Department Care Team (Late st Contact Info) Description 11/27/2024 2:30 PM EDT Office Visit Adult Medicine [facility] [address] [place] [address] Stevo Valdovinos MD [address] [place] [address] Health Maintenance Due Date Last Done Comments Hepatitis A Vaccines (1 of 2 - Risk 2-dose series) 07/31/2006 Pneumococcal Vaccine: Pediatrics (0 to 5 Years) and At-Risk Patients (6 to 49 Years) (1 of 2 - PCV) 07/31/2006 Influenza Vaccine (#1) 2024 Social Influencers of Health Screening 10/22/2025 10/22/2024 Cholesterol Screening (Lipid Panel) 10/22/2029 10/22/2024, 05/12/2022 DTaP,Tdap,and Td Vaccines (9 - Td or Tdap) 05/03/2032 05/03/2022, 04/16/2010, 10/07/1998, Additional history exists IPV Vaccines Completed 08/07/1992, 07/24, 02/07/1988, Additional history exists MMR Vaccines Completed 05/09/1997, 11/15/1988 Hepatitis B Vaccines Completed 03/31/1999, 12/07/1998, 10/07/1998, Additional history exists COVID-19 Vaccine Discontinued 03/14/2021 HIV Screening Completed 05/12/2022 Hepatitis C Screening Completed 05/12/2022 Depression Screening Completed 10/22/2024 HIB Vaccines Aged Out No longer eligi [...] Procedure Name Priority Date/Time Associated Diagnosis Comments CBC WITH AUTO DIFFERENTIAL Routine 10/22/2024 1:07 PM EDT History of iron deficiency anemia CBC AND DIFFERENTIAL Routine 10/22/2024 1:07 PM EDT History of iron deficiency anemia COMPREHENSIVE METABOLIC PANEL Routine 10/22/2024 1:07 PM EDT Routine general medical examination at a [facility] care facility LIPID PANEL WITH REFLEX TO DIRECT LDL Routine 10/22/2024 1:07 PM EDT Mixed hyperlipidemia IRON AND TIBC Routine 10/22/2024 1:07 PM EDT History of iron deficiency anemia EXTERNAL XRAY REPORT 09/21/2024 EXTERNAL XRAY REPORT 09/21/2024 HEPATITIS C SCREENING Routine 05/12/2022 HIV SCREENING Routine 05/12/2022 from Last 3 Months or Most Recently Relevant to Health Maintenance Results * (ABNORMAL) Lipid panel with reflex to direct LDL (10/22/2024 1:07 PM EDT) Cholesterol 200 0 - 200 mg/dL LAB CHEMISTRY METHOD 10/22/2024 5:05 PM EDT [facility] Triglycerides 112 0 - 150 mg/dL LAB CHEMISTRY METHOD 10/22/2024 5:05 PM EDT [facility] HDL 45 >=40 mg/dL LAB CHEMISTRY METHOD 10/22/2024 5:05 PM EDT [facility] LDL Calculated 133(H) 0 - 100 mg/dL LAB CHEMISTRY METHOD 10/22/2024 5:05 PM EDT [facility] VLDL Cholesterol Eyad 22.4 mg/dL LAB CHEMISTRY METHOD 10/22/2024 5:05 PM EDT [facility] Non HDL Chol. (LDL+VLDL) 155(H) <145 mg/dL LAB CHEMISTRY METHOD 10/22/2024 5:05 PM EDT [facility] Chol/HDL Ratio 4.4 0.0 - 4.4 LAB CHEMISTRY METHOD 10/22/2024 5:05 PM EDT [facility] Blood Venous blood specimen / Unknown Venipuncture / Unknown 10/22/2024 1:07 PM EDT 10/22/2024 1:07 PM EDT us Hiwot Jesus PA LAB BLOOD ORDERABLES Final Resul t [facility] [address] [place] [address], [place] [phone] * (ABNORMAL) CBC auto differential (10/22/2024 1:07 PM EDT) [facility] Signature WBC 4.7(L) 4.8 - 10.8 K/mcL LAB HEMETOLOGY METHOD 10/22/2024 4:35 PM EDT [facility] RBC 5.00 4.50 - 5.50 M/mcL LAB HEMETOLOGY METHOD 10/22/2024 4:35 PM EDT [facility] Hemoglobin 10.1(L) 13.5 - 17.5 g/dL LAB HEMETOLOGY METHOD 10/22/2024 4:35 PM EDT [facility] Hematocrit 36.4(L) 42.0 - 54.0 % LAB HEMETOLOGY METHOD [facility]/22[facility]24 [facility] MCV 72.9(L) 79.0 - 98.0 FL LAB HEMETOLOGY METHOD 10/22/2024 4:35 PM EDT [facility] MCH 20.2(L) 27.0 - 32.0 pcg LAB HEMETOLOGY METHOD 10/22/2024 4:[facility] MCHC 27.7(L) 32.0 - 37.0 g/dL LAB HEMETOLOGY METHOD 10/22/2024 4:[facility] RDW 17.3(H) 11.0 - 15.0 % LAB HEMETOLOGY METHOD 10/22/2024 4:35 PM EDT [facility] Platelets 395 130 - 400 K/mcL LAB HEMETOLOGY METHOD 10/22/2024 4:[facility] MPV 10.0 7.0 - 11.0 FL LAB HEMETOLOGY METHOD 10/22/2024 4:[facility] NRBC 0.0 <1.0 % LAB HEMETOLOGY METHOD 10/22/2024 4:35 PM EDT [facility] NRBC Absolute 0.00 <0.10 K/mcL LAB HEMETOLOGY METHOD 10/22/2024 4:35 [facility] Neutrophils Relative 54.8 % LAB HEMETOLOGY METHOD 10/22/2024 4:35 [facility] Lymphocytes Relative 29.0 % LAB HEMETOLOGY METHOD 10/22/2024 4:35 PM EDT [facility] Monocytes Relative 15.0 % LAB HEMETOLOGY METHOD 10/22/2024 4:35 PM EDT [facility] Eosinophils Relative 0.2 % LAB HEMETOLOGY METHOD 10/22/2024 4:[facility] Basophils Relative 0.6 % LAB HEMETOLOGY METHOD 10/22/2024 4:35 PM [facility] Immature Granulocytes Relative 0.4 % LAB HEMETOLOGY METHOD 10/22/2024 4:35 PM [facility] Neutrophils Absolute 2.55 1.50 - 7.00 K/mcL LAB HEMETOLOGY METHOD 10/22/2024 4:35 PM [facility] Lymphocytes Absolute 1.35 1.00 - 5.00 K/mcL LAB HEMETOLOGY METHOD 10/22/2024 4:35 PM EDT [facility] Monocytes Absolute 0.70 0.20 - 1.00 K/mcL LAB HEMETOLOGY METHOD 10/22/2024 4:35 PM EDT [facility] Eosinophils Absolute 0.01 0.00 - 0.50 K/mcL LAB HEMETOLOGY METHOD 10/22/2024 4:35 PM [facility] Basophils Absolute 0.03 0.00 - 0.20 K/mcL LAB HEMETOLOGY METHOD 10/22/2024 4:35 PM EDT [facility] Immature Granulocytes Absolute 0.02 0.00 - 0.03 K/mcL LAB HEMETOLOGY METHOD 10/22/2024 4:35 PM EDT [facility] Blood Venous blood specimen / Unknown Venipuncture / Unknown 10/22/2024 1:07 PM EDT 10/22/2024 1:07 PM EDT Hiwot Lee SC LAB BLOOD ORDERABLES Final Resul t Performing Organization Address City/[facility]/ZIP Co de Phone Number [facility] [address] [place] [address], [place] [phone] * (ABNORMAL) Iron and TIBC (10/22/2024 1:07 PM EDT) Iron 19(L) 50 - 160 mcg/dL LAB CHEMISTRY METHOD 10/22/2024 5:02 PM EDT [facility] TIBC 447 250 - 450 mcg/dL LAB CHEMISTRY METHOD 10/22/2024 5:02 PM EDT [facility] Iron Saturation 4(L) 20 - 50 % LAB CHEMISTRY METHOD 10/22/2024 5:02 PM EDT [facility] Blood Venous blood specimen / Unknown Venipuncture / Unknown 10/22/2024 1:07 PM EDT 10/22/2024 1:07 PM EDT Hiwot ZARATE LAB BLOOD ORDERABLES Final Resul t Performing Organization Address [facility] Co de Phone Number [facility] [address] [place] [address], [place] [phone] * Comprehensive metabolic panel (10/22/2024 1:07 PM EDT) Sodium 137 133 - 145 mmol/L LAB CHEMISTRY METHOD 10/22/2024 5:05 PM EDT [facility] Potassium 4.5 3.5 - 5.5 mmol/L LAB CHEMISTRY METHOD 10/22/2024 5:05 PM [facility] Chloride 105 96 - 110 mmol/L LAB CHEMISTRY METHOD 10/22/2024 5:05 PM [facility] CO2 23 21 - 32 mmol/L LAB CHEMISTRY METHOD 10/22/2024 5:05 PM [facility] Anion Gap 9 3 - 11 LAB CHEMISTRY METHOD 10/22/2024 5:05 PM [facility] Glucose 87 70 - 100 mg/dL LAB CHEMISTRY METHOD 10/22/2024 5:05 PM [facility] BUN 9 5 - 25 mg/dL LAB CHEMISTRY METHOD 10/22/2024 5:05 PM [facility] Creatinine 0.94 0.70 - 1.30 mg/dL LAB CHEMISTRY METHOD 10/22/2024 5:05 PM [facility] eGFR 107 >=60 mL/min/1. 73m2 LAB CHEMISTRY METHOD 10/22/2024 5:05 PM [facility] Comment:Calculation based on the Chronic Kidney Disease Epidemiology Collaboration (CKD-EPI) equation refit without adjustment for race. BUN/Creatinine Ratio 9.6 LAB CHEMISTRY METHOD 10/22/2024 5:05 PM [facility] Calcium 9.3 8.5 - 10.5 mg/dL LAB CHEMISTRY METHOD 10/22/2024 5:05 PM [facility] AST (SGOT) 34 10 - 42 unit/L LAB CHEMISTRY METHOD 10/22/2024 5:05 PM [facility] ALT (SGPT) 53 10 - 60 unit/L LAB CHEMISTRY METHOD 10/22/2024 5:05 PM [facility] Alkaline Phosphatase 67 42 - 121 unit/L LAB CHEMISTRY METHOD 10/22/2024 5:05 PM [facility] Total Protein 7.9 6.0 - 8.0 g/dL LAB CHEMISTRY METHOD 10/22/2024 5:05 PM EDT [facility] Albumin 4.3 3.2 - 5.0 g/dL LAB CHEMISTRY METHOD 10/22/2024 5:05 PM EDT [facility] Total Bilirubin 0.4 0.0 - 1.4 mg/dL LAB CHEMISTRY METHOD 10/22/2024 5:05 PM EDT [facility] Blood Venous blood specimen / Unknown Venipuncture / Unknown 10/22/2024 1:07 PM EDT 10/22/2024 1:07 PM EDT Hiwot Jesus ZARATE LAB BLOOD ORDERABLES Final Resul t [facility]) [facility] [address] [place] [address], [place] [phone] * External Xray Report (09/21/2024) Only the most recent of2 resultswithin the time period is included. Anatomical Region Laterality Modality Radiographic Shanel ging Provider [facility] XR PROCEDURES Final Result * HIV Screening (05/12/2022) HIV Screening Abstracted Historical Provider HEALTH MAINTENANCE Final Result * Hepatitis C Screening (05/12/2022) Hepatitis C Screening Abstracted Historical Provider HEALTH MAINTENANCE Final Result from Last 3 Months or Most Recently Relevant to Health Maintenance [place] [address] [place] [address] Care Teams Technical Writing Lead/Mgr Relationship Specialty Start Date End Date Stevo Valdovinos MD [address] [place] [address] PCP - General 03/26/22
== END 2024-11-14 15:29 | disposition home or self-care (01) ==
LOC: HO.HOS 15:13
DX: S62.601A Fracture of unspecified phalanx of left index finger, initial encounter for closed fracture (principal)
CPT/HCPCS: 99024

== ENCOUNTER 2024-12-12 14:04 | Outpatient (RCR) | payer BC, SELFPAY ==
--- NOTE | 2024-11-05 11:23 | MHC.OT.EP ---
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 In the ED, he tried to leave but was brought back by security, resulting in index prox phalanx fracture. He was placed in splint and referred to ortho. He has since had follow ups and is using jelly tape and given wrist orthosis. He is now 6.5 weeks s/p injury and seen for OT assessment. He is doing well w/ exercises since out of cast and has good wrist ROM and slightly decreased range through index with some edema, but no sensory changes. I anticipate he will do well w/ course of therapy to regain range and functional strength with goal of return to work and daily activities. 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 Thank you once again for your referral.
--- NOTE | 2024-12-05 11:43 | MHC.OT.OP ---
[facility] Office [address] [facility] [phone] F: [phone] F: [phone] Occupational Therapy Progress Note Patient Name: Mehrdad Shine Diagnosis: Left Index Prox Phalanx Fx Date of Evaluation: 11/05/24 Treatments to Date: 3 Subjective: It (pain) varies slightly, it's always there I'm doing well, feel like I'm getting ready to get back to work Pain Score: 1 Pain Location: Left index Objective Measures: MCP 100 PIP 88 DIP 80 GG R 130 L 100 Status: Progressing Assessment: Mehrdad is now 11 weeks s/p left index prox phalanx fx and doing well. Slight tightness with hook fist and mild edema present, but good range and strength overall. He cont's to have low pain and reports no difficulty w/ daily activities, he is hopeful to return to work. Short Term Goals: Ind w/ HEP (met) Ind w/ edema management techniques (met) Full tip-palm flex w/ ease (met) Pt to utilize index for FMC tasks w/ ease (met) Mcc Goals: Gross grasp >80lb (met) QuickDASH score <20 pts Pt to return to work Full range w/ hook fist Frequency and Duration: The patient will be seen 1x/wk for 1 week Treatment Plan: Therapeutic Exercise Therapeutic Activity Home Exercise Program Splinting Patient Education Edema Control ADL Training Paraffin Fluidotherapy MHP Cold Packs Joint Mobilization Soft Tissue Mobilization One more OT appt to reiterate home program Electronically Signed By: Renay Montalvo OTR/Florina CHT Reviewed/agree with student documentation: N/A Therapist:
== END 2025-01-18 06:47 | disposition home or self-care (01) ==
LOC: HO.OT 14:04
PROVIDERS: PCP Internal Medicine
DX: S62.601D Fracture of unspecified phalanx of left index finger, subsequent encounter for fracture with routine healing (principal)
CPT/HCPCS: 97110; 97140; 97165

== ENCOUNTER 2024-12-12 14:38 | Outpatient (AMB) | payer BC, SELFPAY ==
[2024-12-12 14:42] VITALS: BMI 27.2
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
--- OUTSIDE RECORDS SUMMARY | 2024-12-12 15:34 | XMS_ITS | Clinical Summary ---
Author Organization [facility] Address [address] [place] [address] Phone Care Team Providers Care Service Team Leader Name Role Phone Stevo Valdovinos MD Primary Care Provider Allergies Active Allergy Reactions Criticality Noted Date Comments Amoxicillin Trihydrate 01/29/2005 hives Medications pramipexole (MIRAPEX) 0.25 mg tablet TAKE 1 TABLET BY MOUTH AT BEDTIME 90 tablet 1 5 Active QUEtiapine (SEROquel) 50 mg tablet Take 1 tablet (50 mg total) by mouth at bedtime. 90 tablet 1 5 Active doxepin (SINEquan) 10 mg capsule at bedtimeTake 1 Capsule by mouth at bedtime. 90 capsule 1 5 Active ferrous sulfate 325 mg (65 mg iron) EC tablet Take 1 tablet (325 mg total) by mouth 1 (one) time each day with breakfast. Do not crush, chew, or split. 90 each 1 5 Active omeprazole (PriLOSEC) [address] capsule Take 1 capsule (20 mg total) by mouth 1 (one) time each day. Take on empty stomach in am . Wait 30 mins and then eat to activate the medication 90 capsule 1 5 Active triamcinolone (KENALOG) 0.025 % cream Apply to affected areas twice daily for 2 weeks 3 11/28/19 25 Discontin ued(Patie nt Discharge ) omeprazole (PriLOSEC) [address] capsule Take 1 capsule (20 mg total) by mouth 1 (one) time each day. Take on empty stomach in am . Wait 30 mins and then eat to activate the medication 30 capsule 11 4 11/28/19 25 Discontin ued(Reord er) cyclobenzaprin e (FLEXERIL) 5 mg tablet Take 1 tablet (5 mg total) by mouth. for 7 days 5 11/28/19 25 Discontin ued(Patie nt Discharge ) doxepin (SINEquan) 10 mg capsule at bedtimeTake 1 Capsule by mouth at bedtime. 30 capsule 1 5 11/28/19 25 Discontin ued(Reord er) QUEtiapine (SEROquel) 50 mg tablet Take 1 tablet (50 mg total) by mouth at bedtime. 30 tablet 1 5 11/28/19 25 Discontin ued(Reord er) pramipexole (MIRAPEX) 0.25 mg tablet TAKE 1 TABLET BY MOUTH AT BEDTIME 90 tablet 5 11/28/19 25 Discontin ued(Reord er) ferrous sulfate 325 mg (65 mg iron) EC tablet Take 1 tablet (325 mg total) by mouth 1 (one) time each day with breakfast. Do not crush, chew, or split. 30 each 5 5 11/28/19 25 Discontin ued(Reord er) Active Problems Problem Noted Date Diagnosed Date History of iron deficiency anemia 10/22/2024 Mixed hyperlipidemia 10/22/2024 Vapes nicotine containing substance 10/22/2024 RLS (restless legs syndrome) 10/22/2024 Insomnia 10/22/2024 Anxiety 02/10/2024 Overview (02/10/2024): Ramon castellanos therapist [phone] Opioid dependence in remission ([facility]/HCC V24, CMS /FORMER[facility] V28) 02/10/2024 Fatty liver 07/25/2023 Gallbladder polyp 07/25/2023 Microscopic hematuria 01/23/2014 Hep C w/o coma, chronic (CMS/HCC V24, CMS/[facility]ER[facility] V2 8) 06/30/2011 Overview (02/10/2024): Chronic Hepatitis C Genotype 1A. Tx Started 06/15/15 Harvoni 90-400 mg. Take One Tab Daily for 12 Weeks. End Date 09/07/15. Alcohol abuse 07/13/2007 Attention deficit hyperactivity disorder (ADHD) 07/17/2003 Encounters Date Type Department Care Team Description 11/27/2024 2:30 PM EDT Office Visit Adult Medicine [address] [phone] Stevo Valdovinos MD Iron deficiency anemia, unspecified iron deficiency anemia type (Primary Dx); Mixed hyperlipidemia; RLS (restless legs syndrome); Insomnia, unspecified type; Screening for diabetes mellitus (DM) 10/23/2024 Telephone Adult Medicine [address] [phone] Hiwot Reyez PA 10/22/2024 11:30 AM EDT Office Visit Adult [address] [phone] Hiwot Reyez PA Routine general medical examination at a health care facility (Primary Dx); History of iron deficiency anemia; Mixed hyperlipidemia; RLS (restless legs syndrome); Insomnia, unspecified type; Vapes nicotine containing substance 10/22/2024 Telephone Adult Medicine [address] [phone] Hiwot Reyez PA 10/04/2024 Telephone Adult Medicine [address] [phone] Stevo Valdovinos MD Medication Problem from Last 3 Months Immunizations Name Administration Dates Next Due DTP 08/07/1992, 9,02/07/1988, 988,1987 [id number] (Pediarix) 6 w ks to less than [...] in remission ([facility]) Anxiety DX:Anxiety Rectal bleeding DX:Rectal bleedi ng [...] care for your loved ones. For example, child monitor or elderly care for an older adult? 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 file Not on file Not on file Obstetrics History Last Filed Vital Signs Vital Sign Reading Time Taken Comments Blood Pressure 134/79 11/27/2024 2:37 PM EDT Pulse 103 11/27/2024 2:37 PM EDT Temperature 37.2 C (99 F) 11/27/2024 2:37 PM EDT Respiratory Rate 16 11/27/2024 2:37 PM EDT Oxygen Saturation 97% 11/27/2024 2:37 PM EDT Inhaled Oxygen Concentration - - Weight 85.6 kg (188 lb 12.8 oz) 11/27/2024 2:37 PM EDT Height 180.3 cm (5' 11 ) 11/27/2024 2:37 PM EDT Body Mass Index 26.33 11/27/2024 2:37 PM EDT Plan of Treatment Upcoming Encounters Date Type Department Care Team (Late st Contact Info) Description 02/27/2025 3:30 PM EST Office Visit Adult Medicine [facility] [address] [place] [address] Stevo Valdovinos MD [address] [place] [address] Health Maintenance Due Date Last Done Comments [...] EDT Routine general medical examination at a health care facility LIPID PANEL WITH REFLEX TO [...] LAB CHEMISTRY METHOD 10/22/2024 5:05 PM EDT [facility] Triglycerides 112 0 - 150 mg/dL LAB CHEMISTRY METHOD 10/22/2024 5:05 PM EDT [facility] HDL 45 >=40 mg/dL LAB CHEMISTRY METHOD 10/22/2024 5:05 PM EDT [facility] LDL Calculated 133(H) 0 - 100 mg/dL LAB CHEMISTRY METHOD 10/22/2024 5:05 PM EDT [facility] VLDL Cholesterol Eyad 22.4 mg/dL LAB CHEMISTRY METHOD 10/22/2024 5:05 PM EDT [facility] Non HDL Chol. (LDL+VLDL) 155(H) <145 mg/dL LAB CHEMISTRY METHOD 10/22/2024 5:05 PM EDT [facility] Chol/HDL Ratio 4.4 0.0 - 4.4 LAB CHEMISTRY METHOD 10/22/2024 5:05 PM EDT [facility] Blood Venous blood specimen / Unknown Venipuncture / Unknown 10/22/2024 1:07 PM EDT 10/22/2024 1:07 PM EDT us Hiwot Aissatou [facility] LAB BLOOD ORDERABLES Final Resul t [facility] [address] [place] [address], [place] [phone] * (ABNORMAL) CBC auto differential (10/22/2024 1:07 PM EDT) WBC 4.7(L) 4.8 - 10.8 K/mcL LAB HEMETOLOGY METHOD 10/22/2024 4:35 PM [facility] RBC 5.00 4.50 - 5.50 M/mcL LAB HEMETOLOGY METHOD 10/22/2024 4:35 PM [facility] Hemoglobin 10.1(L) 13.5 - 17.5 g/dL LAB HEMETOLOGY METHOD 10/22/2024 4:35 PM [facility] Hematocrit 36.4(L) 42.0 - 54.0 % LAB HEMETOLOGY METHOD 10/22/2024 4:35 PM [facility] MCV 72.9(L) 79.0 - 98.0 FL LAB HEMETOLOGY METHOD 10/22/2024 4:35 PM [facility] MCH 20.2(L) 27.0 - 32.0 pcg LAB HEMETOLOGY METHOD 10/22/2024 4:35 PM [facility] MCHC 27.7(L) 32.0 - 37.0 g/dL LAB HEMETOLOGY METHOD 10/22/2024 4:35 PM [facility] RDW 17.3(H) 11.0 - 15.0 % LAB HEMETOLOGY METHOD 10/22/2024 4:35 PM [facility] Platelets 395 130 - 400 K/[facility] LAB HEMETOLOGY METHOD 10/22/2024 4:35 PM [facility] MPV 10.0 7.0 - 11.0 FL LAB HEMETOLOGY METHOD 10/22/2024 4:35 PM [facility] NRBC 0.0 <1.0 % LAB HEMETOLOGY METHOD 10/22/2024 4:35 PM [facility] NRBC Absolute 0.00 <0.10 K/[facility] LAB HEMETOLOGY METHOD 10/22/2024 4:35 PM [facility] Neutrophils Relative 54.8 % LAB HEMETOLOGY METHOD 10/22/2024 4:35 PM [facility] Lymphocytes Relative 29.0 % LAB HEMETOLOGY METHOD 10/22/2024 4:35 PM [facility] Monocytes Relative 15.0 % LAB HEMETOLOGY METHOD 10/22/2024 4:35 PM [facility] Eosinophils Relative 0.2 % LAB HEMETOLOGY METHOD 10/22/2024 4:35 PM [facility] Basophils Relative 0.6 % LAB HEMETOLOGY METHOD 10/22/2024 4:35 PM [facility] Immature Granulocytes Relative 0.4 % LAB HEMETOLOGY METHOD 10/22/2024 4:35 PM [facility] Neutrophils Absolute 2.55 1.50 - 7.00 K/mcL LAB HEMETOLOGY METHOD 10/22/2024 4:35 PM [facility] Lymphocytes Absolute 1.35 1.00 - 5.00 K/mcL LAB HEMETOLOGY METHOD 10/22/2024 4:35 PM [facility] Monocytes Absolute 0.70 0.20 - 1.00 K/mcL LAB HEMETOLOGY METHOD 10/22/2024 4:35 PM [facility] Eosinophils Absolute 0.01 0.00 - 0.50 K/mcL LAB HEMETOLOGY METHOD 10/22/2024 4:35 PM [facility] Basophils Absolute 0.03 0.00 - 0.20 K/mcL LAB HEMETOLOGY METHOD 10/22/2024 4:35 PM [facility] Immature Granulocytes Absolute 0.02 0.00 - 0.03 K/mcL LAB HEMETOLOGY METHOD 10/22/2024 4:35 PM [facility] Blood Venous blood specimen / Unknown Venipuncture / Unknown 10/22/2024 1:07 PM EDT 10/22/2024 1:07 PM EDT Hiwot [facility] LAB BLOOD ORDERABLES Final Resul t Performing Organization Address [facility] de Phone Number [facility] [address] [place] [address], [place] [phone] * (ABNORMAL) Iron and TIBC (10/22/2024 1:07 PM EDT) Iron 19(L) 50 - 160 mcg/dL LAB CHEMISTRY METHOD 10/22/2024 5:02 PM EDT [facility] TIBC 447 250 - 450 mcg/dL LAB CHEMISTRY METHOD 10/22/2024 5:02 PM EDT [facility] Iron Saturation 4(L) 20 - 50 % LAB CHEMISTRY METHOD 10/22/2024 5:02 PM EDT [facility] Blood Venous blood specimen / Unknown Venipuncture / Unknown 10/22/2024 1:07 PM EDT 10/22/2024 1:07 PM EDT us Hiwot [facility] LAB BLOOD ORDERABLES Final Resul t Performing Organization Address [facility] de Phone Number [facility] [address] [place] [address], [place] [phone] * Comprehensive metabolic panel (10/22/2024 1:07 PM EDT) Sodium 137 133 - 145 mmol/L LAB CHEMISTRY METHOD 10/22/2024 5:05 PM EDT [facility] Potassium 4.5 3.5 - 5.5 mmol/L LAB CHEMISTRY METHOD 10/22/2024 5:05 PM EDT [facility] Chloride 105 96 - 110 mmol/L LAB CHEMISTRY METHOD [facility] CO2 23 21 - 32 mmol/L LAB CHEMISTRY METHOD 10/22/2024 5:05 PM [facility] Anion Gap 9 3 - 11 LAB CHEMISTRY METHOD 10/22/2024 5:05 PM [facility] Glucose 87 70 - 100 mg/dL LAB CHEMISTRY METHOD 10/22/2024 5:05 PM [facility] BUN 9 5 - 25 mg/dL LAB CHEMISTRY METHOD 10/22/2024 5:05 PM [facility] Creatinine 0.94 0.70 - 1.30 mg/dL LAB CHEMISTRY METHOD 10/22/2024 5:05 PM [facility] eGFR 107 >=60 mL/min/1. 73m2 LAB CHEMISTRY METHOD 10/22/2024 5:05 PM [facility] Comment:Calculation based on the Chronic Kidney Disease Epidemiology Collaboration (CKD-EPI) equation refit without adjustment for race. BUN/Creatinine Ratio 9.6 LAB CHEMISTRY METHOD 10/22/2024 5:05 PM [facility] Calcium 9.3 8.5 - 10.5 mg/dL LAB CHEMISTRY METHOD 10/22/2024 5:05 PM [facility] AST (SGOT) 34 10 - 42 unit/L LAB CHEMISTRY METHOD 10/22/2024 5:05 PM [facility] ALT (SGPT) 53 10 - 60 unit/L LAB CHEMISTRY METHOD 10/22/2024 5:05 PM [facility] Alkaline Phosphatase 67 42 - 121 unit/L LAB CHEMISTRY METHOD 10/22/2024 5:05 PM [facility] Total Protein 7.9 6.0 - 8.0 g/dL LAB CHEMISTRY METHOD 10/22/2024 5:05 PM [facility] Albumin 4.3 3.2 - 5.0 g/dL LAB CHEMISTRY METHOD 10/22/2024 5:05 PM EDT [facility] Total Bilirubin 0.4 0.0 - 1.4 mg/dL LAB CHEMISTRY METHOD 10/22/2024 5:05 PM EDT [facility] Blood Venous blood specimen / Unknown Venipuncture / Unknown 10/22/2024 1:07 PM EDT 10/22/2024 1:07 PM EDT Hiwot Aissatou [facility] LAB BLOOD ORDERABLES Final Resul t [facility] [address] [place] [address], [place] [phone] * External Xray Report (09/21/2024) Only the [...] Most Recently Relevant to Health Maintenance Insurance [facility] Care Teams Service Team Leader Relationship Specialty Start Date End Date BonifacioStevo jacques MD [address] [place] [address] PCP - General 03/26/22
== END 2024-12-12 14:59 | disposition home or self-care (01) ==
LOC: HO.HOS 14:38
PROVIDERS: PCP Internal Medicine
DX: S62.601A Fracture of unspecified phalanx of left index finger, initial encounter for closed fracture (principal)
CPT/HCPCS: 99024